=== PATIENT | female | born 1955 | race Caucasian/White ===

== ENCOUNTER 2016-10-18 17:01 | Emergency (ER) | payer OTHER ==
[2016-10-18 17:29] LABS: BASOPHIL# 0.1 X 10^3uL (0.0-0.1); BASOPHILS 0.7 % (0.0-2.0); EOSINOPHILS 2.3 % (0.0-6.0); EOSINOPHILS# 0.2 X 10^3uL (0.0-0.4); HEMATOCRIT 44.7 % (36.0-48.0); HEMOGLOBIN 15.2 g/dL (12.0-16.0); LYMPHOCYTES 32.3 % (20.0-40.0); MEAN CELL VOLUME 83.3 fL (80.0-100.0); MEAN CORPUSCULAR HEMOGLOBIN 28.3 pg (29.0-35.0); MEAN PLATELET VOLUME 9.5 fL (7.4-10.4); MONOCYTES 5.1 % (2.0-10.0); MONOCYTES# 0.5 X 10^3uL (0.2-1.0); NEUTROPHILS 59.6 % (54.0-75.0); NEUTROPHILS# 5.6 X 10^3uL (2.6-6.7); PLATELET COUNT 214 X 10^3uL (130-440); RED BLOOD COUNT 5.36 X 10^6uL (4.20-6.10); RED CELL DISTRIBUTION WIDTH 13.1 % (11.5-14.5); WHITE BLOOD COUNT 9.4 X 10^3uL (3.9-10.7)
[2016-10-18] MEDS ORDERED: KETOROLAC TROMETHAMINE 30 MG/ML VIAL ONE (17:34)
[2016-10-18] MEDS ORDERED: FAMOTIDINE IN SALINE, ISO-OSM 50 ML IV ONE (17:34)
[2016-10-18] MEDS ORDERED: ONDANSETRON HCL 4 MG/2 ML VIAL ONE (17:34)
[2016-10-18 17:53] LABS: ALBUMIN 4.5 g/dL (3.5-5.0); ALKALINE PHOSPHATASE 131 U/L (38-126); ALT 37 U/L (9-52); AST 24 U/L (14-36); BILIRUBIN, TOTAL 0.5 mg/dL (0.2-1.3); BLOOD UREA NITROGEN 22 mg/dL (7-17); CALCIUM 9.7 mg/dL (8.4-10.2); CHLORIDE 101 mmol/L (98-107); CREATININE 0.7 mg/dL (0.5-1.0); EST GLOMERULAR FILTRATION RATE > 60 mL/min; GLUCOSE 90 mg/dL (70-100); LIPASE 86 U/L (23-300); POTASSIUM 3.8 mmol/L (3.5-5.1); SODIUM 140 mmol/L (137-145); TOTAL PROTEIN 7.9 g/dL (6.3-8.2)
--- NOTE | 2016-10-18 18:51 | ER NURSING DOCUMENTATION ---
Nurse's Notes [facility] Name:Anette Hendrickson Age:61 yrs Sex:Female :1955 Arrival Date:10/18/2016 Time:17:01 Bed3 Private MD:Adi Alicea Diagnosis:Cholelithiasis w/ Colic Presentation: 10/18 17:10 Presenting complaint: Patient states: pt has had abd cramping and nausea fro [address] pt denies any vomiting but is uncomfortable and can not lay still. Transition of care: Home. 17:10 Method Of Arrival: Private Vehicle st 17:19 Acuity: SUDHIR 2 st Triage Assessment: 17:10 General: Appears uncomfortable, Behavior is cooperative, restless. Pain: Complains of st pain in abdomen Pain currently is 7 out of 10 on a pain scale. Quality of pain is described as crampy, Pain began 4 hours ago. Cardiovascular: Capillary refill < 3 seconds Heart tones present Pulses are palpable in right radial artery and left radial artery. Respiratory: No deficits noted. GI: Abdomen is flat, non- distended Abd is soft X 4 quads Abdomen is tender to palpation in right upper quadrant Reports cramping, nausea, and the desire to vomit but can't. Historical: - Allergies: No known drug Allergies; - Home Meds: 1. thyroid (pork) oral - PMHx: HYPOTHYROIDISM; - PSHx: None; - Tetanus: < 10 years. - Ebola Screening: : Patient denies exposure to infectious person. Patient denies travel to an Ebola-affected area in the 21 days before illness onset. . - Social history: Smoking status: Patient states former smoker of tobacco. Patient uses alcohol but reports only rare drinking. Patient/guardian denies using marijuana. Screenin:51 Infectious Disease Risk None. Abuse screen: Denies threats or abuse. Denies injuries st from another. pt feels safe at home. Nutritional screening: No deficits noted. Assessment: 17:47 General: pt is feeling much better.. st Vital Signs: 17:11 BP 153 / 75 (auto/); Pulse 64; st 17:12 Pulse Ox 100% ; st 17:47 Pain 3/10; st 18:39 BP 99 / 58; Pulse 67; Pulse Ox 90% on R/A; st ED Course: 17:02 Patient arrived in ED. arc 17:02 Adi Alicea MD is Private Physician. arc 17:04 Porsha Wesley RN is Primary Nurse. st 17:04 Timmy Mayorga MD is Attending Physician. sc 17:[address] 17:19 Inserted peripheral IV: 20 gauge in left antecubital area and blood collected. st 17:52 Valuables Remains with patient Patient has correct armband on for positive st identification. Placed in gown. Bed in low position. Pulse Ox - RN Monitoring Only NIBP On - RN Monitoring Only. Warm blanket given. 18:34 Adi Alicea MD is Referral Physician. sc 18:35 Timmy Bianchi MD is Referral Physician. sc Administered Medications: 17:28 Drug: NS 0.9% 1000 ml; Route: IV; Rate: 150 ml/hr; Site: left antecubital; st 18:49 Follow up: IV Status: Infusion discontinued; IV Intake: 700ml st 17:28 Drug: Toradol 30 mg; Route: IVP; Site: left antecubital; st 18:39 Follow up: Response: Pain is decreased st 17:28 Drug: Zofran 4 mg; Route: IVP; Infused Over: 2 mins; Site: left antecubital; st 18:40 Follow up: Response: Nausea is decreased st 17:28 Drug: Pepcid 20 mg; Route: IVPB; Site: left antecubital; st 17:40 Follow up: IV Status: Completed infusion; IV Intake: 50ml st Point of Care Testing: Urine Dip: 18:36 pH: 5.0; ; Specific [place]: 1.020; Ketones: Small; Glucose: Negative; Protein: st Negative; Leukocytes: Negative; Nitrite: Negative ; Blood: Negative; Bilirubin: Negative ; Urobilinogen: Normal Intake: 17:40 IV: 50ml; Total: 50ml. st 18:49 IV: 700ml; Total: 750ml. st Outcome: 18:35 Discharge ordered by . sc 18:40 IV D/Francis st 18:49 Discharged to home ambulatory. st 18:49 Condition: improved 18:49 Discharge instructions given to patient, Instructed on discharge instructions, follow up and referral plans. medication usage, Prescriptions given X 1. 18:50 Patient left the ED. st Signatures: Porsha Wesley RN RN Timmy Pearl MD MD sc Chew Jory, Reg Reg arc
--- NOTE | 2016-10-18 18:51 | ER PHYSICIAN DOCUMENTATION ---
Physician Documentation [facility] Name:Anette Hendrickson Age:61 yrs Sex:Female :1955 Arrival Date:10/18/2016 Time:17:01 Bed3 Private MD:Adi Alicea ED, Scott Disposition: 10/18/16 18:35 Discharged to Home/Self Care. Impression: Cholelithiasis w/ Colic. - Condition is Good. - Discharge Instructions: Cholelithiases - BILIARY COLIC w/Gallstone (presumd). - Prescriptions for Hydrocodone- Acetaminophen 5-325 mg Oral Tablet - take 1 tablet by ORAL route every 6 hours As needed; 20 tablet. - Medical Reconciliation form form. - Follow up: Adi Alicea MD; When: As needed; Reason: If symptoms return. Follow up: Timmy Bianchi MD; When: As needed; Reason: Continuance of care. - Problem is new. - Symptoms are resolved. HPI: 10/18 18:23 This 61 yrs old Female presents to ER via Private Vehicle with complaints of sc Abdominal Pain. 18:23 The patient presents with abdominal pain in the right upper quadrant. Onset: The sc symptoms/episode began/occurred 2 hour(s) ago. The symptoms do not radiate. Associated signs and symptoms: Pertinent positives: nausea. The symptoms are described as dull. Modifying factors: The symptoms are alleviated by walking. Severity of pain: At its worst the pain was severe. The patient has not experienced similar symptoms in the past. Historical: - Allergies: No known drug Allergies; - Home Meds: 1. thyroid (pork) oral - PMHx: HYPOTHYROIDISM; - PSHx: None; - Tetanus: < 10 years. - Ebola Screening: : Patient denies exposure to infectious person. Patient denies travel to an Ebola-affected area in the 21 days before illness onset. . - Social history: Smoking status: Patient states former smoker of tobacco. Patient uses alcohol but reports only rare drinking. Patient/guardian denies using marijuana. ROS: 18:26 Constitutional: Negative for fever, chills, and weight loss. sc Eyes: Negative for injury, pain, redness, and discharge. ENT: Negative for injury, pain, and discharge. Neck: Negative for injury, pain, and swelling. Cardiovascular: Negative for chest pain, palpitations, and edema. Respiratory: Negative for shortness of breath, cough, wheezing, and pleuritic chest pain. Back: Negative for injury and pain. MS/Extremity: Negative for injury and deformity. Skin: Negative for injury, rash, and discoloration. 18:26 Neuro: Negative for headache, weakness, numbness, tingling, and seizure. sc 18:26 Abdomen/GI: Positive for abdominal pain, nausea. Exam: Constitutional: This is a well developed, well nourished patient who is awake, alert, and in no acute distress. Head/Face: Normocephalic, atraumatic. Eyes: Pupils equal round and reactive to light, extra-ocular motions intact. Lids and lashes normal. Conjunctiva and sclera are non-icteric and not injected. Cornea within normal limits. Periorbital areas with no swelling, redness, or edema. Chest/axilla: Normal chest wall appearance and motion. Nontender with no deformity. No lesions are appreciated. Cardiovascular: Regular rate and rhythm with a normal S1 and S2. No gallops, murmurs, or rubs. Normal PMI, no JVD. No pulse deficits. Respiratory: Lungs have equal breath sounds bilaterally, clear to auscultation and percussion. No rales, rhonchi or wheezes noted. No increased work of breathing, no retractions or nasal flaring. Back: No spinal tenderness. No costovertebral tenderness. Full range of motion. 18:27 Skin: Warm, dry with normal turgor. Normal color with no rashes, no lesions, and no sc evidence of cellulitis. 18:27 Abdomen/GI: Inspection: abdomen appears normal, Bowel sounds: normal, Palpation: mild abdominal tenderness, in the right upper quadrant, rebound tenderness, is not appreciated. Vital Signs: 17:11 BP 153 / 75 (auto/); Pulse 64; st 17:12 Pulse Ox 100% ; st 17:47 Pain 3/10; st 18:39 BP 99 / 58; Pulse 67; Pulse Ox 90% on R/A; st MDM: 17:04 Patient medically screened. sc 18:33 Differential diagnosis: appendicitis, bowel obstruction, cholecystitis, Cholelithiasis, sc gastritis, gastroesophageal reflux disease. Data reviewed: vital signs, nurses notes, lab test result(s), and as a result, I will continue to observe the patient. Medication response: The patient's symptoms have improved, The patient's symptoms have resolved. 10/18 17:34 Order name: CBC AUTO DIF, MDIF/RMOR IF IND; Complete Time: 18:00 EDMS 10/18 17:59 Interpretation: Normal. nj 10/18 17:54 Order name: BASIC METABOLIC PANEL EDCA 10/18 17:54 Order name: HEPATIC PANEL; Complete Time: 18:00 EDMS 10/18 18:00 Interpretation: Normal Except: ALKALINE PHOSPHATASE 131. nj 10/18 17:54 Order name: LIPASE; Complete Time: 18:00 EDMS 10/18 18:00 Interpretation: Normal. nj 10/18 17:13 Order name: NPO; Complete Time: 17:28 nj 10/18 17:13 Order name: Urine Dip; Complete Time: 18:40 nj Dispensed Medications: 17:28 Drug: NS 0.9% 1000 ml; Route: IV; Rate: 150 ml/hr; Site: left antecubital; st 18:49 Follow up: IV Status: Infusion discontinued; IV Intake: 700ml st 17:28 Drug: Toradol 30 mg; Route: IVP; Site: left antecubital; st 18:39 Follow up: Response: Pain is decreased st 17:28 Drug: Zofran 4 mg; Route: IVP; Infused Over: 2 mins; Site: left antecubital; st 18:40 Follow up: Response: Nausea is decreased st 17:28 Drug: Pepcid 20 mg; Route: IVPB; Site: left antecubital; st 17:40 Follow up: IV Status: Completed infusion; IV Intake: 50ml Point of Care Testing: Urine Dip: 18:36 pH: 5.0; ; Specific [place]: 1.020; Ketones: Small; Glucose: Negative; Protein: st Negative; Leukocytes: Negative; Nitrite: Negative ; Blood: Negative; Bilirubin: Negative ; Urobilinogen: Normal Signatures: Porsha Wesley RN RN st Chew, Scott, MD MD nj
== END 2016-10-18 18:50 | disposition home or self-care (01) ==
LOC: ER 17:01
DX: K80.20 Calculus of gallbladder without cholecystitis without obstruction (principal)
CPT/HCPCS: 80048; 80076; 83690; 85025; 96361; 96374; 96375; 99284; J1885; J2405